=== PATIENT | male | born 1980 | race African-American/Black ===

== ENCOUNTER 2019-10-01 08:26 | Emergency (ER) | payer OTHER ==
[~2019-10-01] VITALS: Ht 165.1 cm; Wt 83.9 kg
[2019-10-01 09:15] LABS: ABSOLUTE EOSINOPHILS 0.1 thou/uL (0.0-0.7); ABSOLUTE LYMPHOCYTES 1.9 thou/uL (0.8-5.3); ABSOLUTE MONOCYTES 0.6 thou/uL (0.0-1.2); ABSOLUTE NEUTROPHILS 3.1 thou/uL (1.6-8.1); BASOPHILS 0.5 %; EOSINOPHILS 1.1 %; HEMATOCRIT 46.3 % (42.0-52.0); HEMOGLOBIN 15.9 gm/dL (14.0-18.0); MCH 29.9 pg (26.0-34.0); MCHC 34.3 g/dL (28.0-37.0); MCV 87.1 fL (80.0-100.0); MONOCYTES 10.2 %; MPV 9.6 fl. (7.2-11.1); NUCLEATED RBCS 0 /100WBC; PLATELET COUNT* 120 thou/uL (150-400); POLYS 55.2 %; RBC 5.32 mil/uL (4.50-6.00); RDW-CV 13.4 % (10.5-14.5); WBC 5.7 thou/uL (4.0-11.0)
[2019-10-01 09:21] LABS: URINE BILIRUBIN NEGATIVE (Negative); URINE BLOOD NEGATIVE (Negative); URINE CLARITY CLEAR; URINE COLOR YELLOW; URINE GLUCOSE-RANDOM NEGATIVE (Negative); URINE KETONES 1+ (Negative); URINE LEUKOCYTES-REFLEX NEGATIVE (Negative); URINE NITRITE-REFLEX NEGATIVE (Negative); URINE PROTEIN TRACE (Negative); URINE UROBILINOGEN 0.2 E.U./dl (0.2-1.0)
[2019-10-01 09:46] LABS: CALCIUM 9.1 mg/dL (8.5-10.1); CREATININE 1.5 mg/dL (0.6-1.3); POTASSIUM 4.3 mmol/L (3.5-5.1)
[2019-10-01 09:50] LABS: ALBUMIN 4.2 g/dL (3.4-5.0); TOTAL BILIRUBIN 0.4 mg/dL (<0.1-1.0)
[2019-10-01] MEDS ORDERED: ZOFRAN ODT4 MG PO (10:26)
[2019-10-01] MEDS ORDERED: PENICILLIN V P500 MG PO (10:26)
[2019-10-01] MEDS ORDERED: HYDROCODON-ACE1 EAC7 PO (10:26)
[2019-10-01 10:44] VITALS: BP 163/83
--- NOTE | 2019-10-02 11:16 | EKG ---
[place] [address] ELECTROCARDIOGRAM REPORT Name: LLANOSCA Room: [facility]#: [id number] Admission: 10/01/19 Attend Phys: Discharge: 10/01/19 Date of : 82 Date of Service: 10/01/19916 Report #: [id number] THIS REPORT FOR: //name// [facility] ED Test Date: 2019-10-01 Test Time: 09:17:06 Pat Name: CA LLANOS Department: Room: Gender: Pc Tech: [facility] : 1980 Requested By: Maxine Woodson Order Number: [id number] Faisal MD: Michael Miller Measurements Intervals [place] Rate: 50 P: 46 VT: 168 QRS: 37 QRSD: 92 T: 28 QT: 441 QTc: 403 Interpretive Statements Sinus bradycardia Probable left atrial enlargement ST elev, probable normal early repol pattern No previous ECG available for comparison Electronically Signed On 10-02-2019 11:16:12 CDT by Michael Miller [email or web address] <ELECTRONICALLY SIGNED> By: Michael Miller MD, [facility] 10/02/19 1116 6 6 Michael Miller MD, [facility] /EPI
== END 2019-10-01 10:45 | disposition home or self-care (01) ==
LOC: M.ERS 08:26 → EDBD 08:26 → M.ERS 10:45
PROVIDERS: Personal Emergency Response Attendant
DX: R11.2 Nausea with vomiting, unspecified (principal); K08.89 Other specified disorders of teeth and supporting structures; L53.9 Erythematous condition, unspecified; R22.0 Localized swelling, mass and lump, head

== ENCOUNTER 2020-09-14 16:37 | Emergency (ER) | payer OTHER ==
[~2020-09-14] VITALS: Ht 165.1 cm; Wt 81.7 kg
[~2020-09-14 16:37] MED LIST: HYDROCODON-ACE1 EAC7 PO; PENICILLIN V P500 MG PO; ZOFRAN ODT4 MG PO
[2020-09-14 17:52] VITALS: BP 165/65
== END 2020-09-14 17:52 | disposition home or self-care (01) ==
LOC: M.ERS 16:37
DX: Z20.822 Contact with and (suspected) exposure to COVID-19 (principal)